=== PATIENT | female | born 1965 | race Caucasian/White ===

== ENCOUNTER 2021-06-18 09:55 | Emergency (ER) | payer MEDICAID ==
[~2021-06-18] VITALS: Ht 154.9 cm; Wt 115.7 kg
[2021-06-18 10:02] VITALS: BP 105/52
--- NOTE | 2021-06-18 10:08 | NUR ---
AMBULATED TO BED 7
--- NOTE | 2021-06-18 10:12 | NUR ---
55/F BIB DAUGHTER WITH C/O LEFT LEG PAIN. PATIENT STATES SHE TRIPPED AND FELL AT WORK 3 WEEKS AGO, LANDING ON HER LEFT LEG CAUSING BRUISING. PT STATES SINCE INJURY, BRUISING HEALED, HOWEVER WOUND ON LEFT KNEE OPENED SINCE 3 DAYS AGO WHILE SHOWERING AND NOT HEALING, STATING PAIN HAS BEEN WORSENING. PATIENT REPORTS 9/10, THROBBING/CONSTANT, NON-RADIATING PAIN. PT STATES ABLE TO AMBULTATE. NO REDNESS, SWELLING, DRAINAGE, BLEEDING NOTED TO OPEN WOUND OF LEFT KNEE. PT PRESENTED TO ER WITH 2X2 GAUZE SECURED BY BAND AID PT REPORTS TYLENOL @ 0900 WITH MINOR RELIEF. LAST TETANUS UNKNOWN. SKIN PINK/WARM/DRY. +ROM. SURROUNDING WOUND SITE TENDER TO PALPATION. PT ALSO STATES CHILLS X 2 WEEKS. DENIES OTHER MEDICAL COMPLAINTS. BED LOCKED IN LOWEST POSITION, SIDE RAILS X 1, CALL LIGHT IN REACH. DAUGHTER AT BEDSIDE. MEDHX: HTN MEDS: UNOBTAINABLE SX: C-SECTIONS ALLERGIES: DENIES
[2021-06-18] MEDS ORDERED: KETOROLAC 60 MG/2 ML VIAL IM ONE (10:30)
[2021-06-18] MEDS ORDERED: IBUP-2213 PO (10:35)
[2021-06-18] MEDS ORDERED: CEPH-588 PO (10:35)
[2021-06-18] MEDS ORDERED: ACET-8386 PO (10:35)
--- NOTE | 2021-06-18 11:05 | NUR ---
Patient discharged with v/s stable. Written and verbal after care instructions given and explained. Patient alert, oriented and verbalized understanding of instructions. Ambulatory with steady gait. All questions addressed prior to discharge. ID band removed. Patient advised to follow up with PMD. Rx of Ibuprofen, Keflex, Hydrocodone/Acetaminophen given. Patient educated on indication of medication including possible reaction and side effects. Opportunity to ask questions provided and answered.
== END 2021-06-18 11:05 | disposition home or self-care (01) ==
LOC: MED 09:55 → EDBD 09:55 → MED 11:05
DX: L03.116 Cellulitis of left lower limb (principal); I10 Essential (primary) hypertension
CPT/HCPCS: 96372; 99283; J1885